=== PATIENT | female | born 1960 | race Caucasian/White ===

== ENCOUNTER 2020-03-21 07:13 | Outpatient (CLI) | payer BC, SELFPAY ==
--- NOTE | 2020-03-21 | MR_ITS ---
WS: [id number] MRI CERVICAL SPINE HISTORY: NECK PAIN COMPARISON: None available. C5 retrolisthesis by 2.9 mm. Moderate degenerative disc disease at C5-6 and C6-7. Small endplate osteophytes C4-C7. Signal within the cord is normal. Craniocervical junction, C1 and C2 relationship, odontoid process and soft tissues are normal. C2-C3: Normal. C3-C4: Shallow central disc protrusion and small osteophytes. C4-C5: Mild osteophytic ridging with no stenosis. Shallow central disc protrusion. C5-C6: Diffuse osteophytic ridging with asymmetric LEFT foraminal disc osteophyte complex. There is e ffacement of ventral CSF with mild central and moderate LEFT foraminal stenosis. C6-C7: Diffuse osteophytic ridging and annular disc bulging. Mild encroachment upon the ventral theca l sac with mild central stenosis. Minimal bilateral foraminal narrowing. C7-T1: Normal. At T2-3 and T3-4 there is central disc bulging or osteophytes encroaching upon the ventral thecal sac . No significant stenosis. Lobulated slightly nodular bilateral thyroid. MR/MR cervical spin wo con* [id number] IMPRESSION: 1. Mild central and moderate LEFT foraminal stenosis at C5-6 due to combinatio n of disc and osteophyte formation. 2. Mild bilateral foraminal stenosis at C6-7 predominantly due to osteophyte d isease. 3. Central disc protrusions are small at C3-4 and C5-6.
--- NOTE | 2020-03-21 | MR_ITS ---
WS: [id number] MRI LEFT SHOULDER HISTORY: LEFT SHOULDER JOINT PAIN COMPARISON: 02/26/2020 radiographs. TECHNIQUE: Multiplanar sequences of the shoulder joint are submitted. Mild degenerative changes and hypertrophy at the AC joint. There is a small amount of edema in the re gion of the acromioclavicular ligament. No displacement. Minimal hypertrophic bone formation at the a cromion and clavicle. There is a small osteophyte with very minimal encroachment upon the supraspinat us muscle. 5 mm osteophyte encroaching upon the distal supraspinatus tendon over the superior humeral head. No significant subacromial or subdeltoid bursal distention. No os acromion. There is a small cyst measuring 5 mm in the suprascapular notch. No edema or atrophy of the infraspin atus or supraspinatus. Superior labral tear does appear to connect with the cyst in the suprascapular notch. The rotator cuff muscles are intact with no retraction or atrophy. No tear is identified. There is a very small amount of edema over the superior humeral head and the supraspinatus. May in part be due t o the osteophyte from the distal inferior acromion. Biceps tendon is in normal position. No fractures. MR/MR shoulder LT con* [id number] IMPRESSION: 1. Superior labral tear with associated 5 mm suprascapular notch cyst. 2. Mild AC joint sprain. 3. 5 mm osteophyte from the distal undersurface of the acromion with mild encr oachment upon the supraspinatus muscle and tendon. 4. No rotator cuff tear.
== END 2020-03-21 07:14 | disposition home or self-care (01) ==
LOC: RADSHAW 07:17
PROVIDERS: PCP Nurse Practitioner Family; Visit Provider Nurse Practitioner Family
DX: M48.02 Spinal stenosis, cervical region (principal); M25.78 Osteophyte, vertebrae; M50.222 Other cervical disc displacement at C5-C6 level; S43.432A Superior glenoid labrum lesion of left shoulder, initial encounter; X58.XXXA Exposure to other specified factors, initial encounter
CPT/HCPCS: 72141; 73221

== ENCOUNTER 2021-03-30 08:26 | Outpatient (CLI) | payer BC, SELFPAY | END 2021-03-30 08:27 | disposition home or self-care (01) | LOC: WOUND 08:26 | PROVIDERS: PCP Nurse Practitioner Family; Visit Provider Nurse Practitioner Family | DX: I10 Essential (primary) hypertension (principal); E78.5 Hyperlipidemia, unspecified; L97.512 Non-pressure chronic ulcer of other part of right foot with fat layer exposed | CPT/HCPCS: 11042; G0463 ==

== ENCOUNTER 2021-04-06 08:18 | Outpatient (CLI) | payer BC, SELFPAY | END 2021-04-06 08:19 | disposition home or self-care (01) | LOC: WOUND 08:18 | PROVIDERS: PCP Nurse Practitioner Family; Visit Provider Nurse Practitioner Family | DX: S91.311A Laceration without foreign body, right foot, initial encounter (principal); X58.XXXA Exposure to other specified factors, initial encounter | CPT/HCPCS: 11042 ==

== ENCOUNTER 2021-04-13 08:10 | Outpatient (CLI) | payer BC, SELFPAY | END 2021-04-13 08:11 | disposition home or self-care (01) | LOC: WOUND 08:10 | PROVIDERS: PCP Nurse Practitioner Family; Visit Provider Nurse Practitioner Family | DX: I96 Gangrene, not elsewhere classified (principal); L97.512 Non-pressure chronic ulcer of other part of right foot with fat layer exposed; I10 Essential (primary) hypertension; E78.5 Hyperlipidemia, unspecified | CPT/HCPCS: 11042 ==

== ENCOUNTER 2021-04-20 08:34 | Outpatient (CLI) | payer BC, SELFPAY | END 2021-04-20 08:35 | disposition home or self-care (01) | LOC: WOUND 08:35 | PROVIDERS: PCP Nurse Practitioner Family; Visit Provider Nurse Practitioner Family | DX: Z09 Encounter for follow-up examination after completed treatment for conditions other than malignant neoplasm (principal) | CPT/HCPCS: 99212 ==

== ENCOUNTER → 2021-11-21 17:41 | Outpatient (BNVA) | payer BC, SELFPAY | PROVIDERS: PCP Nurse Practitioner Family; Visit Provider Nurse Practitioner | DX: J02.0 Streptococcal pharyngitis (principal); B34.9 Viral infection, unspecified | CPT/HCPCS: 87400 ==

== ENCOUNTER 2022-09-16 14:08 | Outpatient (CLI) | payer BC, SELFPAY ==
--- NOTE | 2022-09-16 14:45 | XR_ITS ---
WS: [id number] Left foot, 3 views, 09/16/2022 Clinical Data: left foot pain Comparison: None. Findings: No fractures or dislocations are seen. No bone destruction or erosion is noted. The joint spaces and soft tissues are normal. XR/XR foot LT min 3V* [id number] Impression: Negative left foot.
== END 2022-09-16 14:09 | disposition home or self-care (01) ==
LOC: RAD 14:14
PROVIDERS: PCP Nurse Practitioner Family; Visit Provider Emergency Medicine
DX: M79.672 Pain in left foot (principal)
CPT/HCPCS: 73630

== ENCOUNTER → 2022-11-22 13:20 | Outpatient (BNVA) | payer BC, SELFPAY | PROVIDERS: PCP Nurse Practitioner Family; Visit Provider Podiatrist Foot & Ankle Surgery | DX: M76.829 Posterior tibial tendinitis, unspecified leg (principal); M24.572 Contracture, left ankle | CPT/HCPCS: 73610 ==

== ENCOUNTER 2023-01-11 16:32 | Outpatient (CLI) | payer BC, SELFPAY | END 2023-01-11 16:33 | disposition home or self-care (01) | LOC: SPT 16:33 | PROVIDERS: PCP Nurse Practitioner Family; Visit Provider Podiatrist Foot & Ankle Surgery | DX: Z46.89 Encounter for fitting and adjustment of other specified devices (principal); M76.822 Posterior tibial tendinitis, left leg; M25.572 Pain in left ankle and joints of left foot | CPT/HCPCS: 97760; L3030 ==

== ENCOUNTER 2024-12-21 09:38 | Outpatient (CLI) | payer BC, SELFPAY ==
--- NOTE | 2024-12-21 09:45 | MM_ITS ---
WS: [id number] VIEWS: MLO and CC views both breasts. 3D digital tomosynthesis is also included in this exam. Comparison made with prior exam of VIEWS: MLO and CC views both breasts. 3D digital tomosynthesis is also included in this exam. Comparison made with prior exam of 06/25/2013, 08/10/2006, 11 02/17/2010, 02/26/2014, 02/25/2015, 04/08/2017, 09/19/2018, 07/14/2023.. Findings: There are scattered areas of fibroglandular density. No suspicious mass, tumor calcification or architectural distortion in either breast. Findings: There are scattered areas of fibroglandular density. FINDINGS MM/MM scr BI tomosynthesis [id number] Impression: BI-RADS: 2 - Benign FOLLOW-UP: 1 Year Follow-up This mammogram was also analyzed by the Computer [employer]. . Impression: BI-RADS: 2 - Benign FOLLOW-UP: 1 Year Follow-up This mammogram was also analyzed by the Computer [employer].
== END 2024-12-21 09:39 | disposition home or self-care (01) ==
PROVIDERS: PCP Nurse Practitioner Family; Visit Provider Nurse Practitioner Family
DX: Z12.31 Encounter for screening mammogram for malignant neoplasm of breast (principal); R92.323 Mammographic fibroglandular density, bilateral breasts
CPT/HCPCS: 77063; 77067